=== PATIENT | male | born 1945 | race Caucasian/White ===

== ENCOUNTER 2022-12-15 23:52 | Emergency (ER) | payer OTHER, MEDICAID ==
[~2022-12-15] VITALS: Ht 182.9 cm; Wt 75.7 kg
[2022-12-15 23:55] VITALS: BP_SYST 112
--- NOTE | 2022-12-15 23:55 | NUR ---
Patient to ER bed 6 to gown for evaluation. Side rails up.
--- NOTE | 2022-12-16 00:05 | NUR ---
Patient triaged and placed in room 6. VSS and patient appears in no acute distress at this time. Accompanied by BLS TRANSPORT , awaiting available bed, and MD notified of need for MSE.
--- NOTE | 2022-12-16 00:17 | NUR ---
PT BROUGHT IN FROM [facility], DUE TO NEED FOR PSYCH EVAL. 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
--- NOTE | 2022-12-16 00:42 | NUR ---
DAVID SIMONS STAFF AWARE(YOURS) PT IS RETURNING IN STABLE CONDITION
--- NOTE | 2022-12-16 01:40 | NUR ---
PT ASLEEP RESTING, SAFETY RAILS UP, URINAL BY BEDSIDE PT WAS GIVEN CRACKERS, PUDDING WATER AND TV ON FOR PT. PT CONNECTED TO PULSE/BP MONITOR.
--- NOTE | 2022-12-16 04:10 | NUR ---
PT SLEEPING NO CHANGES.
--- NOTE | 2022-12-16 05:16 | NUR ---
Patient given written and verbal discharge instructions and verbalizes understanding. ER MD discussed with patient the results and treatment provided. Patient in stable condition. ID arm band removed. PT RETURNING TO [facility] WITH BLS WITH [facility]. Patient educated on MANAGING ANGER and to follow up with PMD. Opportunity for questions provided and answered. Medication side effect fact sheet provided.
[2022-12-16 05:18] VITALS: BP_SYST 96
== END 2022-12-16 05:19 | disposition home or self-care (01) ==
LOC: SED 23:52
DX: R45.1 Restlessness and agitation (principal); Z79.899 Other long term (current) drug therapy
CPT/HCPCS: 99283